=== PATIENT | male | born 1955 | race Caucasian/White ===

== ENCOUNTER → 2018-12-08 | Outpatient (REF) | payer OTHER | LOC: M SMT 17:19 | PROVIDERS: ATTEND Nurse Practitioner Family | DX: R97.20 Elevated prostate specific antigen [PSA] (principal) ==

== ENCOUNTER → 2025-01-24 | Outpatient (CLI) | payer MEDICARE ==
[~2025-01-24] MED LIST: METHACHOLINE KIT (6 VIAL.NEB PREMIX) INH ONE
== END ==
LOC: M CARPUL 12:07
PROVIDERS: ATTEND Internal Medicine Pulmonary Disease
DX: R06.02 Shortness of breath (principal)